=== PATIENT | female | born 1960 | race Caucasian/White ===

== ENCOUNTER 2018-06-10 01:12 | Outpatient (CLI) | payer MEDICAID, SELFPAY ==
--- NOTE | 2018-06-10 12:30 | DI.MAMMO_ITS ---
SYMPTOM/DIAGNOSIS: SCREENING, Z12.31 MAMMOGRAMS: Mammograms were interpreted according to the usual protocol including computer analysis with CAD system, tomosynthesis and C view imaging. The breast tissue is of moderate radiodensity. There is no evidence of a dominant mass. There are no suspicious calcifications. An asymmetric density in the lateral portion of the right breast appears stable when compared with previous images. SUMMARY: No evidence of malignancy. Category 2, yearly screening mammography is recommended. Breast density, category B. Annual screening mammography is recommended. MQSA ASSESSMENT OF FINDINGS: Negative with benign findings. Category 2. Patient will receive a letter notifying them of these results. BI-RADS category B. There are scattered areas of fibroglandular density.
== END 2018-06-10 01:32 ==
PROVIDERS: PCP Student in an Organized Health Care Education/Training Program; Visit Provider Student in an Organized Health Care Education/Training Program
DX: Z12.31 Encounter for screening mammogram for malignant neoplasm of breast (principal)
CPT/HCPCS: 77063; 77067

== ENCOUNTER 2019-09-24 04:21 | Outpatient (CLI) | payer MEDICAID, SELFPAY ==
[2019-09-24 09:05] LABS: BUN 21 mg/dL (7-18); Calcium 8.9 mg/dL (8.5-10.1); Calculated LDL 138 mg/dL (<100); Chloride 103 mmol/L (98-107); Cholesterol 218 mg/dL (<200); Glucose 93 mg/dL (74-106); HDL Cholesterol 71 mg/dL (40-60); Potassium 3.8 mmol/L (3.5-5.1); Sodium 142 mmol/L (136-145); Triglyceride 48 mg/dL (<150)
== END 2019-09-24 04:41 ==
PROVIDERS: PCP Student in an Organized Health Care Education/Training Program; Visit Provider Student in an Organized Health Care Education/Training Program
DX: I10 Essential (primary) hypertension (principal); Z13.220 Encounter for screening for lipoid disorders; Z13.1 Encounter for screening for diabetes mellitus
CPT/HCPCS: 36415; 80048; 80061

== ENCOUNTER 2020-12-02 03:36 | Outpatient (CLI) | payer MEDICAID, SELFPAY ==
--- NOTE | 2020-12-02 08:15 | DI.MAMMO_ITS ---
Exam(s) MAMMO SCREENING EXAM: MAMMO SCREENING CLINICAL HISTORY: screening, Z12.39 TECHNIQUE: Bilateral full field digital CC and MLO mammographic images were obtained with 3D tomosyn thesis and utilizing computer aided detection (CAD). COMPARISON: Available for comparison. FINDINGS: Masses/Architectural Distortion: None seen. Microcalcifications: No suspicious pleomorphic-type are seen. Skin Thickening/Nipple Retraction: None. IMPRESSION: 1. No significant interval change with no specific features of malignancy noted. 2. Unless there is more urgent need, screening mammography is recommended, as per [employer] guidelines. BI-RADS Category 1 - Negative Breast Density - Category B - Scattered areas of fibroglandular density Breast density category C or D implies that the patient has dense breast tissue. Dense breast tissue is very common and is not abnormal but dense breast tissue can make it harder to find cancer on a ma mmogram. Also, dense breast tissue may increase their breast cancer risk. This information about the result of the mammogram report was provided to the patient to raise their awareness. Use this report when you speak with the patient about their risks for breast cancer, which includes their family hist ory. At that time, you may recommend for more screening tests (Ultrasound or MRI) as they might be us eful based on their risk. A negative radiographic report should not delay biopsy if a dominant or clinically suspicious mass is present. Up to ten percent of cancers are not identified on mammography. A negative report may reinforce clinical impression. Adenosis and dense breasts may obscure an underlying neoplasm. False positive reports average 6 to 10%. Patient will receive a letter notifying them of these results.
== END 2020-12-02 03:56 ==
PROVIDERS: PCP Student in an Organized Health Care Education/Training Program; Visit Provider Student in an Organized Health Care Education/Training Program
DX: Z12.31 Encounter for screening mammogram for malignant neoplasm of breast (principal)
CPT/HCPCS: 77063; 77067

== ENCOUNTER 2020-12-20 02:15 | Outpatient (CLI) | payer MEDICAID, SELFPAY ==
--- NOTE | 2020-12-20 14:10 | DI.RAD_ITS ---
Exam(s) XR LUMBAR SPINE COMPLETE EXAM: XR LUMBAR SPINE COMPLETE CLINICAL HISTORY: LOW BACK PAIN, H/O SPONDYLOLISTHESIS. TECHNIQUE: 2D digital imaging was performed. COMPARISON: CR LUMBAR SPINE AP, LAT from 10/22/2011 CR LUMBAR SPINE AP, LAT from 11/19/2011 FINDINGS: The vertebral bodies are well maintained in height. There is bilateral L5 spondylolysis and mild L5- S1 spondylolisthesis. The disc space is narrowed. The findings appear stable compared 2012. There is mild narrowing of the L4-5 disc space and small endplate osteophytes. There are facet degenerativ e changes worsening when compared the previous exam. There is a stable mild dextroscoliosis. The hi p joint spaces are well maintained. IMPRESSION: Stable L5 spondylolysis and mild L5-S1 spondylolisthesis. Degenerative and disc changes. DATA REPOSITORY: RADIATION DOSE DELIVERED:
== END 2020-12-20 02:35 ==
PROVIDERS: PCP Student in an Organized Health Care Education/Training Program; Visit Provider Student in an Organized Health Care Education/Training Program
DX: M54.5 Low back pain (principal); M43.17 Spondylolisthesis, lumbosacral region; M43.06 Spondylolysis, lumbar region
CPT/HCPCS: 72110

== ENCOUNTER 2021-08-22 09:02 | Day surgery (SDC) | payer MEDICAID, SELFPAY ==
[2021-08-22 09:16] VITALS: BP 134/81; PULSE 67; RESP 17; TEMP 37; O2SAT 97
[2021-08-22] MEDS: Lactated Ringers 1,000 ML 80 ML IV (09:47)
--- NOTE | 2021-08-22 10:16 | W.ANESPRE ---
General Info Date of Service Date Performed: 08/22/21 Height: 5 ft 4 in Weight: 82.9 kg Body Mass Index (BMI): 31.4 Surgical Procedure: Operation Date: 08/22/21 10:20 Proposed Procedure Side Surgeon p Jaime Mcintosh, Meds Allergies and Home Medications Allergies Allergy/AdvReac Type Severity Reaction Status Date / Time nitrofurantoin Allergy Severe hives? Verified 08/22/21 09:27 [From Macrodantin] haloperidol [From Haldol] Allergy Intermediate eyes Verified 08/22/21 09:27 rolled back in head sulfamethoxazole Allergy Intermediate hives Verified 08/22/21 09:27 [From Bactrim] trimethoprim [From Bactrim] Allergy Intermediate hives Verified 08/22/21 09:27 haloperidol lactate Allergy Unknown Verified 08/21/21 11:35 [From Haldol] lisinopril AdvReac Unknown Cough Verified 08/22/21 09:27 Home Medication Medication Instructions Recorded vitamin B complex 1 ea PO DAILY 09/16/17 losartan 100 1 tab PO DAILY #90 tabs 10/05/20 mg-hydrochlorothiazide 25 mg tablet albuterol sulfate 90 mcg/actuation 2 inh inhalation Q6H PRN shortness 02/27/21 aerosol inhaler (Proventil HFA) of breath or wheezing #6.7 grams fluticasone propionate 110 1 puff inhalation BID ##1 02/27/21 mcg/actuation HFA aerosol inhaler (Flovent HFA) bisacodyl 5 mg tablet,delayed 5 mg PO ONCE colonscopy bowel prep 08/10/21 release (Dulcolax (bisacodyl)) #4 tabs polyethylene glycol 3350 17 238 g PO ONCE colonoscopy prep 08/10/21 gram/dose oral powder #238 grams Current Visit Medications: Current Medications Generic Name Dose Route Start Last Admin Trade Name Freq PRN Reason Stop Dose Admin Hyoscyamine Sulfate 0.125 mg 08/21/21 12:55 Hyoscyamine 0.125 Mg Sl/Oral/Chew SL DIRECTED PRN Ringer's Solution 1,000 mls @ 80 mls/hr 08/22/21 06:00 08/22/21 09:47 IV 09/20/21 23:59 80 mls/hr INFUSION DISHA Administration IV Miscellaneous Supplies 1 each 08/22/21 06:00 Iv Access IV 09/20/21 23:59 DIRECTED DISHA Ondansetron HCl 4 mg 08/21/21 12:55 Ondansetron 4 Mg/2 Ml Vial IVP Q4H PRN PRN Nausea / Vomiting Sodium Chloride 0 ml 08/22/21 06:00 Normal Saline Flush 10 Ml Syr IV 09/20/21 23:59 PRN PRN Sodium Chloride 0 ml 08/22/21 06:00 Normal Saline 10 Ml Vial IJ 09/20/21 23:59 DIRECTED PRN Sterile Water 0 ml 08/22/21 06:00 Water,Injection,Sterile 10 Ml Vial IJ 09/20/21 23:59 DIRECTED PRN PFSH Active Problems Active Problems: Problem Status Onset Code Diverticulosis of large intestine without hemorrhage 10/04/17 K57.30 Essential hypertension 10/04/17 I10 Health care maintenance Z00.00 Hx of colonic polyp Z86.010 Asthma 10/04/17 J45.909 Hypercholesterolemia 10/04/17 E78.00 Dyspepsia 10/04/17 R10.13 Calcaneal spur 10/04/17 M77.30 Anxiety 10/04/17 F41.9 Exacerbation of asthma 10/04/17 J45.901 Acute right-sided low back pain without sciatica 10/04/17 M54.5 Back pain 12/05/20 M54.9 Spondylolysis M43.00 Family hx of colon cancer Z80.0 Shingles B02.9 Medical History Medical History NIKI-inhibitor cough Asthma Dyspepsia Hypercholesterolemia Hypertension Perimenopausal vasomotor symptoms Shingles 07/27/21 never had open weaping sores just pain.(ok'd per anes to proceed with colonoscopy 08/21/21-LP) Sigmoid diverticulosis Surgical History Surgical History Colonoscopy - MAC (11/25/17) Excision, Cervicle Lymph Nodes Partial Hysterectomy (~1995) Tobacco Smoking/Tobacco Use Status: Never Alcohol Alcohol Intake: current Alcohol intake frequency: 0-2 drinks per day Alcohol type: wine Details: 1 glass of wine every night Substance Use Substance use: Never Substance use type: does not use Vital Signs and Lab Results Vital Signs Most Recent Vital Signs in EMR: Most Recent Vital Signs Temp Pulse Resp BP Pulse Ox 37.0 C 67 17 134/81 97 08/22/21 09:16 08/22/21 09:16 08/22/21 09:16 08/22/21 09:16 08/22/21 09:16 Lab Results Blood Type / Crossmatch: No Data to Display Complete Blood Count: No Data to Display Complete Metabolic Panel: No Data to Display Liver Function Panel: No Data to Display Coagulation Panel: No Data to Display Cardiac Panel: No Data to Display Arterial Blood Gas: No Data to Display Venous Blood Gas: No Data to Display Pancreas Panel: No Data to Display Thyroid Panel: No Data to Display Infectious Disease: No Data to Display Blood Cultures: No Data to Display Toxicology Panel: No Data to Display Anesthesia Assessment and Plan Anesthesia History Personal History: No History of Anesthesia Complications Family History: No Family History of Anesthesia Complications Exercise Tolerance Exercise Tolerance: Metabolic Equivalents>4 Pertinent Negatives Pertinent Negatives: No Symptoms of GERD and No Major Pulmonary Symptoms or Complaints Cardiac & Pulmonary Exam Cardiac Exam: Normal S1/S2 Heart Sounds Pulmonary Exam: Clear Bilateral Breath Sounds Implantable Cardiac Device Does patient have a Pacemaker or an ICD?: No Airway Exam Known Difficult Airway: No Mallampati Class: 2 Mouth Opening: Normal (> 3cm) Thyromental Distance: Greater than 3 cm Neck Range of Motion: Full ROM Neck Circumference: Normal Teeth Condition: Normal Dentition ASA Classification ASA Score: ASA 2 Emergency Case?: No NPO Status NPO Status: NPO Clears >2 hours, Solids >8 hours Anesthesia Plan Resuscitation Status: Full Code Anesthesia Technique: General Anesthesia Airway Planned: Natural Airway Monitors Used: Standard Monitors
[2021-08-22 10:19] VITALS: BMI 31.4
--- NOTE | 2021-08-22 10:44 | BOWEL_PTH ---
PATIENT: Di Benson LOC: [facility] U#:[id number] AGE/SX: 61/F ROOM: RE08/22/[address]: Izzy Mcintosh : 1960 BED: DIS: 08/22/2021 SPEC #: [id number] RECD: 08/22/21 12:34 STATUS: NICHOLAS RE #: [id number] BEHZAD: 08/22/21 10:[address]: Izzy Mcintosh DEPT: Surgical Specimen RECD BY: Dotty More ENTERED: 08/22/21 12:35 SP TYPE: Bowel OTHR DR: Marlys Roth DO Tissues: 1 - BIOPSY BOWEL 2 - BIOPSY BOWEL Procedures: GROSS AND MICRO LEVEL 4 Comments: [id number]
--- NOTE | 2021-08-22 11:14 | W.COLOREPORT ---
Colonoscopy Report Date of procedure: 08/22/21 Pre-op diagnosis general: Colorectal cancer in sister Surgeon: Izzy Mcintosh Anesthesia Type: General:No Airway Pathology: other Complications: None Disposition: same day Prep: Miralax/Dulcolax Retraction Time: 13 Procedure Description: After informed consent was obtained the patient was taken to the procedure room and placed in a left decubitous position. Monitors were applied and a time out was done. The patients name, date of , procedure, allergies to medications and metal in their body was reviewed. The patient was then sedated. Once sedated and comfortable a rectal exam was done. External exam shows: External hemorrhoids- mild. internal exam revealed a normal sphincter tone and no palpable masses. The scope was then introduced and retrofelexed. No internal hemorrhoids were identified. The scope was then advanced to the cecum without difficulty. The TI and appendiceal orifice were identified. The prep was the BPS 2 in all segments for total of 6. scope was then slowly retracted over 13 minutes back into the rectum. she has moderate sigmoidal diverticula, confined to the sigmoid colon, there are no signs of active bleeding or infection. She had x3 polyps removed in the rectum. 2 of them are 0.75 cm & pedunculated. These are removed with cold snare. One of them is a flat 5 mm polyp. This is removed with cold biting work forcep. All specimens are retrieved and no bleeding is noted. There is another small flat polyp at 70 cm. This is removed with 2 bites of cold forcep. The scope was removed, and the patient was woken up and taken back to Same day surgery in stable condition. The patient tolerated the procedure well and there were no immediate complications. Follow up: The patient should follow up in 5-years unless they develop changes in bowel habits or other new gastrointestinal complaints.
[2021-08-22 11:17] VITALS: BP 150/88; PULSE 69; RESP 17; TEMP 36.6; O2SAT 99
--- NOTE | 2021-08-22 11:18 | PDOC.DSDIS_ITS ---
Discharge Plan Disposition Patient Disposition: HOME Condition: Good Discharge Details Reason For Visit: colon scope Attending Provider: Izzy Mcintosh Primary Care Provider: Marlys Roth Home Meds and New Rx's Prescriptions: Continued losartan-hydrochlorothiazide 100-25 mg tablet 1 tab PO DAILY Qty: 90 3RF vitamin B complex 1 EACH capsule 1 ea PO DAILY albuterol sulfate [Proventil HFA] 90 mcg/actuation HFA aerosol inhaler 2 inh IH Q6H PRN (Reason: shortness of breath or wheezing) Qty: 6.7 2RF Flovent HFA 110 mcg/actuation HFA aerosol inhaler 1 puff Inhalation BID Qty: 1 3RF Rx Instructions: 1 puff inhale by mouth twice a day. Use with spacer Discontinued polyethylene glycol 3350 17 gram/dose powder 238 g PO ONCE Qty: 238 0RF Rx Instructions: take per colonoscopy instructions bisacodyl [Dulcolax (bisacodyl)] 5 mg tablet,delayed release (DR/EC) 5 mg PO ONCE Qty: 4 0RF Rx Instructions: take per colonoscopy instructions Discharge Instructions Additional Instructions: DSU Colonoscopy Post- Op Instructions Instructions for Everyone who is given Anesthesia: For your safety, please do the following for the next twenty-four (24) hours: *Do Not operate a motor vehicle (car, truck, motorcycle, etc.) *Do Not drink alcoholic beverages or use any recreational drugs for the first 24 hours or while taking pain medications. The medications in your body may have a reaction that can be dangerous. *Do Not make any important decisions or sign any important papers. Findings: polyps x4 diverticula- moderate. Make sure you are moving your bowels on a regular basis and not straining to go to the bathroom. Follow up: repeat in 5 yrs tiime. 1. No lifting over 20 pounds or strenuous activity for the first 24 hours after your procedure. After 24 hours there are no restrictions on your activity but you may feel fatigued for a few days. 2. After you arrive home you may have a light meal and return to your normal diet as you can tolerate it without feeling sick to your stomach. 3. You may have a bloated, gaseous feeling in your belly (abdomen) after a colonoscopy. Passing gas and belching will help. Walking or lying down on your left side with your knees flexed may relieve the discomfort. Call the office at [phone] (Office) or [phone] (Hospital) right away if you notice any of the following: a.Vomiting of blood or ?coffee ground stools?. b.Rectal bleeding 1Tbsp, blood clots or continuous bleeding. c.Severe belly (abdominal) pain. d.A hard distended belly (abdomen) and an inability to pass gas. 4. Please don?t expect to have a normal BM (bowel movement) for 2-3 days after your procedure. 5. If there are questions regarding the findings of your procedure, please contact your doctor 6. If you are unable to contact your doctor with a problem, contact the hospital at [phone]. 7. Continue all your regular medications unless directed otherwise. I understand the above instructions and have no questions. Signature of Patient or Adult Escort Name of Responsible Adult Escort Signature of Nurse Date/Time Stand Alone Forms: Rosangela Sharp (DSU) Activity:: see above Diet:: see above Discharge Orders Discharge Orders: Discharge Order (Routine); Ordered 08/21/21 Ordered By: Izzy Mcintosh
--- NOTE | 2021-08-22 11:45 | W.ANESPOSTOP ---
Postoperative Evaluation Date, Time and Location Date Performed: 08/22/21 Time Performed: 10:45 Patient Location: Day Surgery Unit Vital Signs Most Recent Imported Vital Signs: Most Recent Vital Signs Temp Pulse Resp BP Pulse Ox 36.6 C 69 17 150/88 H 99 08/22/21 11:17 08/22/21 11:17 08/22/21 11:17 08/22/21 11:08/22/21 11:17 Pain Score Most Recent Pain Score: Most Recent Pain Score Pain Level 0 08/22/21 09:16 Assessment Mental Status: Awake (Alert & Oriented to Patient Baseline) Airway and Respiratory Function: Patent airway with normal (patient baseline) respiratory exam Cardiovascular Function: Hemodynamically Stable Hydration Status: Adequately Hydrated Nausea & Vomiting: No Nausea or Vomiting Pain: Pt. Denies Any Pain Peripheral Nerve Block: Patient did not receive a nerve block
[2021-08-22 11:46] VITALS: BP 155/86; PULSE 63; RESP 18; TEMP 36.6; O2SAT 98
== END 2021-08-22 11:58 | disposition home or self-care (01) ==
PROVIDERS: PCP Student in an Organized Health Care Education/Training Program; Visit Provider Surgery
PROC: 0DJD8ZZ Inspection of Lower Intestinal Tract, Via Natural or Artificial Opening Endoscopic (ICD-10-PCS; CPT 45378; principal; 2021-08-22 10:15)
DX: Z12.11 Encounter for screening for malignant neoplasm of colon (principal); K62.1 Rectal polyp; Z80.0 Family history of malignant neoplasm of digestive organs; I10 Essential (primary) hypertension; E78.00 Pure hypercholesterolemia, unspecified; K63.89 Other specified diseases of intestine
CPT/HCPCS: 45385; 45380; 88305

== ENCOUNTER → 2021-09-18 16:25 | Outpatient (CLI) | payer MEDICAID, SELFPAY ==
--- NOTE | 2021-09-18 15:15 | DI.RAD_ITS ---
Exam(s) XR CHEST 2V PA LATERAL EXAM: XR CHEST 2V PA LATERAL CLINICAL HISTORY: L sided pain, reproducible with touch r07.9 chest pain TECHNIQUE: 2D digital imaging was performed. COMPARISON: No exams were available for comparison FINDINGS: MEDIASTINUM: Normal. HEART: Normal. PULMONARY VASCULATURE: Normal. LUNGS: Clear. PLEURAL SPACE: No pleural effusion or pneumothorax. BONE:Unremarkable for age. IMPRESSION: No acute abnormality. DATA REPOSITORY: RADIATION DOSE DELIVERED:
== END ==
PROVIDERS: PCP Student in an Organized Health Care Education/Training Program; Visit Provider Family Medicine
DX: R07.89 Other chest pain (principal)
CPT/HCPCS: 71046

== ENCOUNTER 2021-10-17 01:51 | Outpatient (CLI) | payer MEDICAID, SELFPAY ==
--- NOTE | 2021-10-17 14:37 | DI.RAD_ITS ---
Exam(s) XR RIBS LT W PA LAT CHEST EXAM: XR RIBS LT W PA LAT CHEST CLINICAL HISTORY: evaluate ribs for possible stress Fx, OUT OF PROPORTION PAIN,RIB TENDERNESS TECHNIQUE: 2D digital imaging was performed. Six images were obtained. COMPARISON: CR XR CHEST 2V PA LATERAL from 09/18/2021 FINDINGS: MEDIASTINUM: Normal. HEART: Normal. PULMONARY VASCULATURE: Normal. LUNGS: Clear. PLEURAL SPACE: No pleural effusion or pneumothorax. BONE:Within normal limits for the patient's age. LEFT RIBS: Normal. OTHER FINDINGS:Normal. IMPRESSION: 1. No acute pulmonary findings. 2. Unremarkable left ribs. DATA REPOSITORY: RADIATION DOSE DELIVERED:
== END 2021-10-17 02:11 ==
LOC: DI 01:52
PROVIDERS: PCP Student in an Organized Health Care Education/Training Program; Visit Provider Student in an Organized Health Care Education/Training Program
DX: S29.012S Strain of muscle and tendon of back wall of thorax, sequela; X58.XXXD Exposure to other specified factors, subsequent encounter; R07.81 Pleurodynia
CPT/HCPCS: 71046; 71100

== ENCOUNTER → 2023-02-21 03:43 | Outpatient (CLI) | payer MEDICAID, SELFPAY ==
--- NOTE | 2023-02-21 07:30 | DI.DEXA_ITS ---
Exam(s) XR DEXA BONE DENSITY W/WO LULÚ EXAM: XR DEXA BONE DENSITY W/WO LULÚ CLINICAL HISTORY: eval bone density,OSTEOPOROSIS, M81.0 TECHNIQUE: HoloSoukboard C densitometer analysis of left hip, lumbar spine and left forearm. Lat eral survey image of the thoracic and lumbar spine. COMPARISON: CR XR LUMBAR SPINE COMPLETE from 02/21/2023 FINDINGS: Lateral view of the thoracic and lumbar spine shows no evidence of compression fractures. Bone mineral density measurements of the lumbar spine correspond to a total T-score of -0.3, in the normal range. Bone mineral density measurements of the left hip correspond to a total T-score of 0.1. The femoral neck T-score is -0.8, in the normal range.. Theleft forearm bone mineral density measurements correspond to a T-score of the distal 3rd of 0.5, in the normal range.. IMPRESSION: Normal bone mineral density.
--- NOTE | 2023-02-21 09:04 | DI.RAD_ITS ---
Exam(s) XR LUMBAR SPINE COMPLETE EXAM: XR LUMBAR SPINE COMPLETE CLINICAL HISTORY: eval lordosis,NEUROPATHY,NUMBNESS AND TINGLING FOOT,G62.9. TECHNIQUE: 2D digital imaging was performed. Five views. COMPARISON: CR XR LUMBAR SPINE COMPLETE from 12/20/2020 CR XR DEXA BONE DENSITY W/WO LULÚ from 02/21/2023 FINDINGS: BONES: No compression fracture. Endplate osteophytes. Bilateral L5 spondylolysis and mild L5-S1 spo ndylolisthesis, unchanged. Mild facet hypertrophy identified. DISKS: Mild narrowing of the L1-2 disc space. Severe narrowing of the L5-S1 disc space, unchanged. ALIGNMENT: Slight dextroscoliosis SOFT TISSUE: Normal. IMPRESSION: Focal appearance of L5 spondylolysis and mild L5-S1 spondylolisthesis as well as severe disc space na rrowing. DATA REPOSITORY: RADIATION DOSE DELIVERED:
--- NOTE | 2023-02-21 09:34 | DI.MAMMO_ITS ---
Exam(s) MAMMO SCREENING EXAM: MAMMO SCREENING CLINICAL HISTORY: screening,Z12.39 TECHNIQUE: Mammograms were interpreted according to the usual protocol including computer analysis w [employer] CAD system, tomosynthesis and C-view imaging. COMPARISON: 2013 through 2020 FINDINGS: The breasts are composed of scattered fibroglandular densities, Breast Density category B. No suspicious masses or suspicious microcalcifications are seen. No skin thickening or abnormal axillary lymph nodes are seen. There has been no significant change from prior exams. IMPRESSION: BI-RADS Category 1, Negative mammogram Yearly screening mammography is recommended. Breast Density - Category B, scattered fibroglandular densities. A negative radiographic report should not delay biopsy if a dominant or clinically suspicious mass is present. Up to ten percent of cancers are not identified on mammography. A negative report may reinforce clinical impression. Adenosis and dense breasts may obscure an underlying neoplasm. False positive reports average 6 to 10%. Patient will receive a letter notifying them of these results.
== END ==
PROVIDERS: PCP Student in an Organized Health Care Education/Training Program; Visit Provider Student in an Organized Health Care Education/Training Program
DX: Z91.89 Other specified personal risk factors, not elsewhere classified; Z12.31 Encounter for screening mammogram for malignant neoplasm of breast; G62.9 Polyneuropathy, unspecified; R20.0 Anesthesia of skin; R20.2 Paresthesia of skin; R92.323 Mammographic fibroglandular density, bilateral breasts; M43.17 Spondylolisthesis, lumbosacral region; M47.816 Spondylosis without myelopathy or radiculopathy, lumbar region; Z13.820 Encounter for screening for osteoporosis
CPT/HCPCS: 77063; 77067; 77080; 72110

== ENCOUNTER 2023-09-16 05:57 | Outpatient (CLI) | payer MEDICAID, SELFPAY ==
[2023-09-16 08:31] LABS: Folate > 20.0 ng/mL (8.6-20.0)
[2023-09-16 08:41] LABS: ALT 88 U/L (14-59); AST 49 U/L (15-37); Albumin 4.1 g/dL (3.4-5.0); Alkaline Phosphatase 46 U/L (46-116); Anion Gap 7.5 mmol/L (3-11); BUN 16 mg/dL (7-18); Bilirubin, Total 0.7 mg/dL (0.2-1.0); CO2 34.5 mmol/L (21.0-32.0); CREATININE 0.8 mg/dL (0.55-1.02); Calcium 9.4 mg/dL (8.5-10.1); Calculated LDL 136 mg/dL (<100); Chloride 101 mmol/L (98-107); Cholesterol 230 mg/dL (<200); Estimated GFR 82.74 (mL/min/1.73m2); Glucose 106 mg/dL (74-106); HDL Cholesterol 77 mg/dL (40-60); Sodium 143 mmol/L (136-145); Total Protein 7.8 g/dL (6.4-8.2); Triglyceride 85 mg/dL (<150); Vitamin B12 454 pg/mL (193-986); Vitamin D 25 Total 18.9 ng/mL (30-100)
== END 2023-09-16 05:58 | disposition home or self-care (01) ==
LOC: LBO 05:57
PROVIDERS: PCP Student in an Organized Health Care Education/Training Program; Visit Provider Student in an Organized Health Care Education/Training Program
DX: G62.9 Polyneuropathy, unspecified (principal); R20.0 Anesthesia of skin; R20.2 Paresthesia of skin
CPT/HCPCS: 36415; 80053; 80061; 82306; 82607; 82746

== ENCOUNTER 2024-03-06 00:26 | Outpatient (CLI) | payer MEDICAID, SELFPAY ==
--- OUTSIDE RECORDS SUMMARY | 2024-03-06 00:29 | XMS_ITS | Encounter Summary ---
[place] [address] Care Team Providers Care Prawn Trawler Hand Name Role Phone Marlys Roth DO Primary Care Provider [phone]- [phone] Reason for Referral * Allergy Testing (Routine) - Closed Specialty Diagnoses / Procedures Referred By Sasha zhu Referred To Contact Allergy Diagnoses Allergy, initial encounter Keith Cook DO [address] [place] [address] [facility] [address] [place] [address] Referral ID Status Reason Start Date Expiration Date V isits Requested Visits Authorized [id number] Closed Consult, Test & Treat PCP Updated and/or Approved 07/12/2022 07/12/2023 6 6 Encounter Details Date Type Department Care Team (Latest Contact Info) Description 07/12/2022 Transcribe Orders eDH Incoming Referrals [phone] Keith Cook DO [address] [place], [place] [id number] Allergy, initial encounter Social History Tobacco Use Types Packs/Day Years Used Date Smoking Tobacco: Never Assessed Sex and Gender Information Value Date Recorded Sex Assigned at Not on file Gender Identity Not on file Sexual Orientation Not on file documented as of this encounter Plan of Treatment Scheduled Referrals Name Type Priority Associated Diagnoses Orde r Schedule Referral to Allergy Outpatient Referral Routine Allergy, initial encounter Ordered: 07/12/2022 documented as of this encounter Visit Diagnoses Diagnosis Allergy, initial encounter documented in this encounter Care Teams Prawn Trawler Hand Relationship Specialty Start Date End Date Marlys Roth DO [address] [place] [address] PCP - General Family Medicine 12/25/17 documented as of this encounter
--- OUTSIDE RECORDS SUMMARY | 2024-03-06 00:29 | XMS_ITS | Clinical Summary ---
Author Organization [facility] Address [facility] [place] [address] Care Team Providers Care Machine Set Up Name Role Phone Marlys Roth DO Primary Care Provider [phone]- [phone] Allergies Active Allergy Reactions Criticality Noted Date Comments Haloperidol CIS - eyes roll to back of head Nitrofurantoin Macrocrystalline CIS - Nausea/Vomiting Sulfamethoxazole-Trimethoprim CIS - Hives Medications Medication Sig Dispensed Refills Start Date End Date Status OXYCODONE HCL (OXYCODONE ORAL) 01/30/2007 Active losartan-hydroCHLOROth iazide (Hyzaar) 100-25 mg tablet Take 1 tablet by mouth daily. 09/21/2022 Active Ventolin HFA 90 mcg/actuation HFA Aerosol Inhaler Inhale 2 puffs into the lungs every 4 hours as needed for Wheezing. 05/01/2022 Active Flovent HFA 110 mcg/actuation HFA Aerosol Inhaler INHALE ONE PUFF BY MOUTH TWICE A DAY, USE WITH SPACER 05/01/2022 Active Active Problems No known active problems Social History Tobacco Use Types Packs/Day Years Used Date Smoking Tobacco: Never Assessed Sex and Gender Information Value Date Recorded Sex Assigned at Not on file Gender Identity Not on file Sexual Orientation Not on file Last Filed Vital Signs Vital Sign Reading Time Taken Comments Blood Pressure 128/75 10/03/2022 9:12 AM EDT Pulse 68 10/03/2022 9:12 AM EDT Temperature 38 ??C (100.4 ??F) 10/14/2012 5:55 PM EDT Respiratory Rate 16 10/14/2012 5:55 PM EDT Oxygen Saturation 100% 10/03/2022 9:12 AM EDT Inhaled Oxygen Concentration - - Weight 81.8 kg (180 lb 4.8 oz) 10/03/2022 9:12 A M EDT Height - - Body Mass Index - - Plan of Treatment Health Maintenance Due Date Last Done Comments CT Colonography 1960 Colonoscopy 1960 Colorectal Cancer Screening 1960 FIT DNA 1960 FIT 1960 Sigmoidoscopy (10 year) with FIT yearly 1960 Sigmoidoscopy 1960 HIV screen 1978 Hepatitis C Screening 1978 Tetanus/Diphtheria/Pertussis Vaccines (1 - Tdap) 03/03 HPV test 1990 PAP Smear 1990 Breast Cancer Share Decision Needed 2000 Breast Cancer screening 2000 Zoster vaccine (1 of 2) 2010 Advance Directive 2015 Covid-19 Vaccine (1 - season) 2023 Influenza (Flu) vaccine (1 o f 1 - Influenza standard series) 12/08/2023 Care Teams Machine Set Up Relationship Specialty Start Date End Date Marlys Roth DO [address] [place] [address] PCP - General Family Medicine 12/25/17
--- OUTSIDE RECORDS SUMMARY | 2024-03-06 00:29 | XMS_ITS | Encounter Summary ---
Author Organization [facility] [place] [address] Care Team Providers Care Law Researcher Name Role Phone Danielle Villareal APRN Primary Care Provider [phone]- [phone] Encounter Details Date Type Department Care Team (Late st Contact Info) Description 01/16/2012 10:30 AM EDT Ancillary Appointment [place] [address] [place] [address] Jose Jimenez Jr., MD [address] [place] [id number] Social History Tobacco Use Types Packs/Day Years Used Date Smoking Tobacco: Never Assessed Sex and Gender Information Value Date Recorded Sex Assigned at Not on file Gender Identity Not on file Sexual Orientation Not on file documented as of this encounter Plan of Treatment Not on file documented as of this encounter Procedures Procedure Name Priority Date/Time Associated Diagnosis Comments NM EXERCISE STRESS AND REST MYOCARDIAL PERFUSION Routine 01/16/2012 documented in this encounter Results * NM myocardial perfusion - stress & rest (01/16/2012) Anatomical Region Laterality Modality Other Narrative 01/16/2012 MIBI Exercise Stress Test- Final Report ?? Di Benson : [address] [place] [address] Primary Physician: ??DANIELLE VILLAREAL APRN ??Indication: dyspnea, chest tightness Date: 01/16/2012 Summary: Max Exercise: ??7:30, 1:30 ??Stage III ??Satya ?? 10 ?? METS Max HR: ? 146> 85 % PMR(143) Max BP: ??218/[address] change: ??none Reason for Termination: dyspnea, no chest pain Imaging: ??Normal perfusion and wall motion ??EF 69 % Impression: good exercise tolerance, no ischemia, normal EF Details: Medication: on lisinopril Risk Factors: ?? Family History, HTN Resting EKG: NSR 68, normal ?Resting BP: 142/90 Exercise per Satya protocol Arrhythmias: none Recovery: ??BP ?? -> ?? 178/92 ?HR ?? -> 93 Arrhythmias: none Rest Images: 10.0 mC MIBI, Spect-normal Stress Images: ??32.0 mC MIBI, Spect-normal Electronically signed: Jose Jimenez Jr, MD [facility] Historical Provider MD DURNO NM ORDERABLES documented in this encounter Visit Diagnoses Not on filedocumented in this encounter Care Teams Law Researcher Relationship Specialty Start Date End Date [place] [address] PCP - General 01/11/12 12/24/17 documented as of this encounter
--- OUTSIDE RECORDS SUMMARY | 2024-03-06 00:29 | XMS_ITS | Encounter Summary ---
Author Organization [facility] [place] [address] Care Team Providers Care Marketing Officer Name Role Phone Marlys Roth DO Primary Care Provider [phone]- [phone] Encounter Details Date Type Department Care Team (Latest Contact Info) Description 10/03/2022 Travel Social History Tobacco Use Types Packs/Day Years Used Date Smoking Tobacco: Never Assessed Sex and Gender Information Value Date Recorded Sex Assigned at Not on file Gender Identity Not on file Sexual Orientation Not on file documented as of this encounter Plan of Treatment Not on file documented as of this encounter Visit Diagnoses Not on filedocumented in this encounter Care Teams Marketing Officer Relationship Specialty Start Date End Date Marlys Roth DO [address] [place] [address] PCP - General Family Medicine 12/25/17 documented as of this encounter
--- OUTSIDE RECORDS SUMMARY | 2024-03-06 00:29 | XMS_ITS | Encounter Summary ---
Author Organization [facility] [place] [address] Care Team Providers Care Picking Supervisor Name Role Phone Marlys Roth DO Primary Care Provider [phone]- [phone] Reason for Visit * Reason Comments Angioedema * Allergy Testing (Routine) - Closed Specialty Diagnoses / Procedures Referred By Sasha zhu Referred To Contact Allergy Diagnoses Allergy, initial encounter Keith Cook DO [address] [place] [address] [facility] [address] [place] [phone] Referral ID Status Reason Start Date Expiration Date V isits Requested Visits Authorized [id number] Closed Consult, Test & Treat PCP Updated and/or Approved 07/12/2022 07/12/2023 6 6 Encounter Details Date Type Department Care Team (Late st Contact Info) Description 10/03/2022 9:30 AM EDT [place] [phone] Tanisha Toussaint MD [facility] [address] [facility] [address] Angioedema, initial encounter Social History Tobacco Use Types Packs/Day Years Used Date Smoking Tobacco: Never Assessed Sex and Gender Information Value Date Recorded Sex Assigned at Not on file Gender Identity Not on file Sexual Orientation Not on file documented as of this encounter Last Filed Vital Signs Vital Sign Reading Time Taken Comments Blood Pressure 128/75 10/03/2022 9:12 AM EDT Pulse 68 10/03/2022 9:12 AM EDT Temperature - - Respiratory Rate - - Oxygen Saturation 100% 10/03/2022 9:12 AM EDT Inhaled Oxygen Concentration - - Weight 81.8 kg (180 lb 4.8 oz) 10/03/2022 9:12 A M EDT Height - - Body Mass Index - - documented in this encounter Patient Instructions * Patient Instructions* Tanisha Toussaint MD - 10/03/2022 9:30 AM EDT There are many potential causes for swelling episodes. Because you have only had 1 episode it is hard to know the diagnosis for certain so we will have to continue to monitor. Get blood testing today to look for cancer-associated swelling. I think this is unlikely to be the explanation. OK to continue losartan-HCTZ for now, but if swelling episodes continue, I may recommend stopping losartan in the future because it can be a rare cause of swelling. The most likely explanation is idiopathic angioedema, a form of autoimmune disease that triggers swelling episodes. There is no specific test that would confirm this. It is something that we can onlydiagnose over time with continued monitoring. This form of angioedema responds to antihistamines, so if you get another episode you can take Benadryl 25 to 50 mg every 4h as needed. For frequent episodes patients may start an antihistamine to take every day to prevent episodes. Idiopathic angioedema is very unlikely to close off your airway. However, if you ever feel like your throat is tight or you are having trouble breathing from swelling episodes you should use the EpiPen and go to the emergency room. I recommend we check in again in 3 months. If you have not had any swelling episodes at that point we can space this out to 6 months. documented in this encounter Progress Notes * Tanisha Toussaint MD - 10/03/2022 9:30 AM EDT CC: swelling HPI: Di Benson is a 62 y.o. female with a PMH of HTN, HLD, asthma presenting for evaluation of facial swelling at the request of Keith Cook. 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 Does not have own pets, chesttightness with animals occurs only when pet sits, every few months on average. Also gets around some cats. Takes claritin prn for this which helps. Has Flovent and albuterol but only rarely uses - uses more in winter with cold air On day of swelling she was pet-sitting, but met the dog a week before - at that time it was in lap and face and no problem Right upper and lower lip swelled and it went up behind right eye Skin was not itchy, doesn't think it was red Started suddenly No trouble breathing - went right away to ED and got benadryl and prednisone which helped pretty quickly but took a couple days to go away completely Doesn't recall tongue swelling Eating crackers and cheese when sx began. Cheddar and Alice gone crackers - has continued to eat both of these since then without a problem Probably had been petting dog earlier that day Has been around the same dog since with no problem as well Did not have the chest tightness on the day she had swelling Eyes not itchy, watery No nasal congestion No other known seasonal or enviro allergies No h/o random hives - only with bactrim (decades ago) and contact with stinging nettle On losartan-HCTZ for a few years now Lisinopril - cough ROS is per HPI all others reviewed and are negative. ENVIRONMENTAL HISTORY Occupation: farm forestry and garden workers, [employer] There is no problem list on file for this patient. Past Medical History: Diagnosis Date Asthma HLD (hyperlipidemia) HTN (hypertension) Past Surgical History: Procedure Laterality Date PARTIAL HYSTERECTOMY losartan-hydroCHLOROthiazide (Hyzaar) 100-25 mg tablet Ventolin HFA 90 mcg/actuation HFA Aerosol Inhaler Flovent HFA 110 mcg/actuation HFA Aerosol Inhaler OXYCODONE HCL (OXYCODONE ORAL) Allergies Allergen Reactions Haloperidol CIS - eyes roll to back of head Nitrofurantoin Macrocrystalline CIS - Nausea/Vomiting Sulfamethoxazole-Trimethoprim CIS - Hives History reviewed. No pertinent family history. Social History Socioeconomic History Marital status: Spouse name: Not on file Number of children: Not on file Years of education: Not on file Highest education level: Not on file Occupational History Not on file Tobacco Use Smoking status: Not on file Smokeless tobacco: Not on file Substance and Sexual Activity Alcohol use: Not on file Drug use: Not on file Sexual activity: Not on file Other Topics Concern Not on file Social History Narrative Not on file Social Determinants of Health Financial Resource Strain: Not on file Food Insecurity: Not on file Transportation Needs: Not on file Physical Activity: Not on file Housing Stability: Not on file PHYSICAL EXAM: BP 128/75 Pulse 68 Wt 81.8 kg (180 lb 4.8 oz) SpO2 100% Gen: awake, alert, no acute distress Head: normocephalic, atraumatic EYES: Conjunctiva not injected or icteric. No discharge. No eyelid edema. ENT: Tympanic membranes clear, no lesions, erythema, or drainage. Normal external ear canals. Nasalpassages show normal mucosa, normal turbinates bilaterally, no lesions. OP mucosa well hydrated, clear without erythema or cobblestoning. No lesions or exudates. No visible OP edema. NECK: supple, symmetric, no masses, trachea midline LYMPH: no submandibular, cervical, or supraclavicular LAD CVS: RRR, no m/r/g LUNGS: CTAB, no wheezing or rales, breathing unlabored ABD: soft, non-tender, non-distended, bowel sounds present SKIN: no rashes, normal color, no mottling EXTREMITIES: warm and well-perfused, normal bulk, symmetric ROM, no edema NEURO: EOMI, no dysarthria PSYCH: normal grooming, appropriate mood and affect, normal volume/quantity/tone of speech, normal thought process and content ASSESSMENT AND PLAN: 62 y.o. female with one episode of angioedema, etiology uncertain but most likely idiopathic angioedema. - This is unlikely to be a food allergy because she has tolerated all the foods since then without a reaction - I think this is unlikely to be due to a dog allergy. She has noticed chest tightness around dogs before so it is clear that dogs can sometimes trigger asthma for her. However she did not have asthma symptoms or any other symptoms of allergy like stuffy nose and itchy eyes when this happened. Usually these symptoms will occur when someone gets swelling from an environmental allergen like dog dander. We discussed sending an IgE to dog, but I expected it to be positive due to the wheezing symptoms and I still did not feel this would explain the angioedema. She declines to send the test after our discussion. - Losartan is a potential cause for swelling episodes. However it usually does not improve with Benadryl. The clinical story, thus, makes this less likely and stopping this would potentially pose harm by making BP control more difficult. Recommended OK to continue for now but if future episodes occur and are more suggestive of an ARB as a trigger, I may recommend stopping it in the future - Will send C4 to r/o AAE. Low suspicion bc this does not respond to benadryl either The most likely explanation is idiopathic angioedema. Discussed that this is a form of autoimmune disease that triggers swelling episodes. There is no specific test that would confirm this and is something that we can only diagnose over time with continued monitoring. - if episodes recur, take Benadryl 25 to 50 mg q4h as needed - if episodes become frequent, will add cetirizine 10mg BID. At this point she has only had one episode so I would like to monitor the trajectory of this before adding daily medications - reviewed that this is very unlikely to cause airway swelling leading to a breathing emergency. She has an epipen already, but carrying it is optional. Counseled on situations where she would use this (throat tightness or any trouble breathing when she has swelling episode) and go to ED if uses RTO 3 mos; may space to 6 mos if no sx Tanisha Toussaint MD Orders Placed This Encounter Procedures C4 Complement documented in this encounter Plan of Treatment Not on file documented as of this encounter Procedures Procedure Name Priority Date/Time Associated Diagnosis Comments C4 COMPLEMENT Routine 10/03/2022 10:18 AM EDT Angioedema, initial encounter documented in this encounter Results * C4 Complement (10/03/2022 10:18 AM EDT) Complement C4 33 10 - 40 mg/dL [facility] Blood 10/03/2022 10:1 8 AM EDT 10/03/2022 10:32 AM EDT Narrative Resulting Agency Comment Spec In Lab Tanisha Toussaint MD CHEMISTRY ORDERABLES [facility] [place] [address] documented in this encounter Visit Diagnoses Diagnosis Angioedema, initial encounter documented in this encounter Care Teams Picking Supervisor Relationship Specialty Start Date End Date Marlys Roth DO [address] [place] [address] PCP - General Family Medicine 12/25/17 documented as of this encounter
--- OUTSIDE RECORDS SUMMARY | 2024-03-06 00:29 | XMS_ITS | Encounter Summary ---
Author Organization [facility] Address [facility] [place] [address] Care Team Providers Care Eyelet Row Marker Name Role Phone Mono Danielle Birmingham APRN Primary Care Provider +1- [phone] Reason for Visit * Reason Comments Fever Encounter Details Date Type Department Care Team (Late st Contact Info) Description 10/14/2012 12:43 PM EDT - 10/14/2012 5:56 PM EDT [place] [address] Jennifer Roach MD [facility] [place] [address] Tick-borne disease (Primary Dx) Discharge Disposition: Home Social History Tobacco Use Types Packs/Day Years Used Date Smoking Tobacco: Never Assessed Sex and Gender Information Value Date Recorded Sex Assigned at Not on file Gender Identity Not on file Sexual Orientation Not on file documented as of this encounter Last Filed Vital Signs Vital Sign Reading Time Taken Comments Blood Pressure 167/96 10/14/2012 5:55 PM EDT Pulse 78 10/14/2012 5:55 PM EDT Temperature 38 ??C (100.4 ??F) 10/14/2012 5:55 PM EDT Respiratory Rate 16 10/14/2012 5:55 PM EDT Oxygen Saturation 99% 10/14/2012 5:55 PM EDT Inhaled Oxygen Concentration - - Weight 81.6 kg (180 lb) 10/14/2012 12:53 PM EDT Height - - Body Mass Index - - documented in this encounter Discharge Instructions * Discharge Instructions* Jennifer Roach MD - 10/14/2012 5:35 PM EDT Take doxycycline twice a day for 2 weeks. Take ibuprofen and Tylenol, alternating, for fever and muscle aches. Drink large amounts of fluids. Return for new or worrisome symptoms. Followup with your PCP. documented in this encounter Medications at Time of Discharge Medication Sig Dispensed Refills Start Date End Date OXYCODONE HCL (OXYCODONE ORAL) 01/30/2007 doxycycline (VIBRAMYCIN) 100 mg capsule Take 1 capsule by mouth 2 times daily for 14 days. 28 capsule 0 10/14/2012 10/28/2012 documented as of this encounter ED Notes * Jennifer Roach MD - 10/14/2012 2:43 PM EDT Chief Complaint Patient presents with ??? Fever HPI 52-year-old female referred by her PCP for further workup of fever. Patient is normally healthy andactive but awakened 2 mornings ago feeling generally unwell and had rigors and sweats as well as a fever. She had a headache, myalgias and no other specific complaints. Appetite was decreased but shewas able to even drink with only mild nausea and no vomiting. She treated herself symptomatically with antipyretics and slept. Later that day she was seen at a local emergency department where she was given IV hydration and further antipyretics and she felt improved and was discharged home. She awakened overnight and had temperatures up to 103 with further rigors. She re\re visit to the emergency department and had blood work which showed leukopenia and thrombocytopenia and was felt to likely have tickborne illness and was given a prescription of doxycycline. She saw her PCP this morning and he was concerned about right upper quadrant tenderness and felt she should have further evaluation. She does note some spontaneous right shoulder discomfort yesterday which is now resolved. She deniedany abdominal pain or change in her bowels. 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 She's not had any rashes. Her chickens and takes have been well. She has no other sick contacts that she is aware of. Past medical history is significant for hypertension, hyperlipidemia and asthma. She does not smoke, drinks a glass of alcohol a day and denies any drug use. Allergies Allergen Reactions ??? Haloperidol CIS - eyes roll to back of head ??? Nitrofurantoin Macrocrystal CIS - Nausea/Vomiting ??? Sulfamethoxazole-Trimethoprim CIS - Hives Review of Systems Constitutional: Positive for fever, chills, diaphoresis and appetite change. HENT: Negative for sore throat and neck pain. Eyes: Negative for visual disturbance. Respiratory: Negative for cough and shortness of breath. Cardiovascular: Negative for chest pain. Gastrointestinal: Positive for nausea. Negative for vomiting, abdominal pain, diarrhea and constipation. Genitourinary: Negative for dysuria. Musculoskeletal: Positive for myalgias. Negative for arthralgias. Skin: Negative for rash. Neurological: Positive for headaches. Psychiatric/Behavioral: Negative for confusion. Physical Exam Nursing note and vitals reviewed. Constitutional: She is oriented to person, place, and time. She appears well- developed and well-nourished. No distress. HENT: Head: Normocephalic. Mouth/Throat: Oropharynx is clear and moist. Eyes: Conjunctivae normal and EOM are normal. Pupils are equal, round, and reactive to light. No scleral icterus. Neck: Neck supple. Cardiovascular: Normal rate, regular rhythm and normal heart sounds. Exam reveals no gallop and no friction rub. No murmur heard. Pulmonary/Chest: Effort normal and breath sounds normal. No respiratory distress. She has no wheezes. She has no rales. Abdominal: Soft. There is tenderness (mild in right upper quadrant. Negative Pugh's sign). Musculoskeletal: She exhibits no edema and no tenderness. Lymphadenopathy: She has no cervical adenopathy. Neurological: She is alert and oriented to person, place, and time. No cranial nerve deficit. Skin: Skin is warm. No rash noted. She is diaphoretic. Psychiatric: She has a normal mood and affect. Her behavior is normal. Procedures MDM Number of Diagnoses or Management Options Tick-borne disease: new, needed workup Amount and/or Complexity of Data Reviewed Clinical lab tests: ordered and reviewed Review and summarize past medical records: yes Risk of Complications, Morbidity, and/or Mortality Presenting problems: high Patient Progress Patient progress: stable ED Course: I reviewed her workup from the outside hospital which shows a white count of 2.9, platelet count 143, ESR 23 with normal LFTs and urine which appeared contaminated. Chest x-ray was reportedly negative per the patient. I reviewed her right upper quadrant ultrasound which shows probable fatty liver and a normal gallbladder. Labs here show lower limit of normal white blood cell count and decrease in her platelet count 126K. 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 She was given a prescription for doxycycline for 2 weeks and advised to followup with her PCP. Reasons to return were discussed. Jennifer Roach MD 10/14/12 1738 documented in this encounter Miscellaneous Notes * Discharge Summary - Provider, Scanning - 10/15/2012 8:39 AM EDT * Miscellaneous - Provider, Scanning - 10/14/2012 1:19 PM EDT * ED Triage - Marina Hook RN - 10/14/2012 12:56 PM EDT Pt. Sent down from PCP office for ED eval. And ultrasound for RUQ pain. Pt. Began to feel tired on 10/12 and went to [facility]. 10/13 and they took labs, CXR And pt. Return at 0300 because of fever 103 and she went back to ED and received 2 L fluid and ibuprofen and was referred to her PCP who saw her and referred her here. Pt. Getting chills and fevers continuing. documented in this encounter Plan of Treatment Not on file documented as of this encounter Procedures Procedure Name Priority Date/Time Associated Diagnosis Comments BABESIA MICROTI IGG AND IGM ANTIBODY PANEL Routine 10/14/2012 4:00 PM EDT LYME IGG & IGM ANTIBODY Routine 10/14/2012 4:00 PM EDT BLOOD PARASITES EXAM STAT 10/14/2012 4:00 PM EDT US ABDOMEN LIMITED STAT 10/14/2012 3: 27 PM EDT DIFFERENTIAL, AUTOMATED STAT 10/14/2012 1:35 PM EDT BLUE TUBE HOLD STAT 10/14/2012 1:35 PM EDT CREATININE Routine 10/14/2012 1:35 PM EDT CBC (WITH DIFF) STAT 10/14/2012 1:35 PM EDT BUN STAT 10/14/2012 1:35 PM EDT LIPASE STAT 10/14/2012 1:35 PM EDT GLUCOSE STAT 10/14/2012 1:35 PM EDT HEPATIC FUNCTION PANEL STAT 10/14/2012 1:35 PM EDT ELECTROLYTES PANEL STAT 10/14/2012 1: 35 PM EDT documented in this encounter Results * Lyme IgG & IgM Antibody (10/14/2012 4:00 PM EDT) Pathologist [facility] Lyme Antibody Neg Neg [facility] Blood specimen (specimen) 10/14/2012 4:00 PM EDT 10/15/2012 6:59 AM EDT Narrative Resulting Agency Comment Spec In Lab Jennifer Roach MD IMMUNOLOGY ORDERABLE S [facility] * Babesia Microti IgG and IgM Antibody Panel (10/14/2012 4:00 PM EDT) Babesia Ab Panel Test ? Result ? Flag ??Unit ??RefValue ------ Babesia Microti Antibodies IgG, IgM ??Babesia microti IgG ?<1:64 ??Babesia microti IgM ?<1:20 ??Interpretation ? SEE COMMENTS ANTIBODY NOT DETECTED REFERENCE RANGES: IgG <1:64 ?IgM <1:20 Elevated antibody levels to B. microti indicate exposure to the organism. Human babesiosis infection is transmitted by the bite of an infected Ixodes tick or less frequently from transfusion with blood from an infected donor. Definitive diagnosis is made by identifying intraerythrocytic organisms in peripheral blood. In patients with low parasitemia, antibody detection by IFA is recommended. IgG levels greater than or equal to 1:1024 can be detected in acute phase patients with parasites in blood smears. The IFA assay can be used as a seroepidemiologic tool to study the frequency and distribution of B. microti in endemic areas especially in persons with mixed infections also involving Borrelia burgdorferi. This test was developed and its performance characteristics have been determined by [facility]. It has not been cleared or approved by the U.S. Food and Drug Administration. The FDA has determined that such clearance or approval is not necessary. Performance characteristics refer to the analytical performance of the test. Test Performed by: [facility], [employer]. [address] [place] [phone] JANES STEWART Blood specimen (specimen) 10/14/2012 4:00 PM EDT 10/15/2012 8:37 AM EDT Narrative Resulting Agency Comment Spec In Lab Jennifer Roach MD CHEMISTRY ORDERABLES [facility] * Blood Parasites Exam (10/14/2012 4:00 PM EDT) Blood Parasites Exam ? Patient Name: ZELDA BENSON ?Ordered By: JENNIFER ROACH ? MR#: [id number] ?LOC: ??ED ? /Sex: ??1960 (52 years), ? Female ? PROCEDURE: Blood Parasites Exam ?SOURCE: Blood ? COLLECTED: 10/14/2012 16:00 ? STARTED: 10/14/2012 17:31 ? FINAL REPORT ? Final Report ? Verified:2012 22:05 ? Examination of thick and thin smears reveals no evidence of malaria or ? other bloodborne parasites. ? PRELIMINARY REPORT ? Preliminary Report ? Verified:2012 17:51 ? Examination of thin smear: No blood Parasites seen. ? Examination of thick smear: Results to follow ? JANES CASTROIUM Blood specimen (specimen) 10/14/2012 4:00 PM EDT 10/14/2012 5:31 PM EDT Narrative Resulting Agency Comment Spec In Lab Jennifer Roach MD [facility]OLOGY [facility] * US abdomen limited (10/14/2012 3:27 PM EDT) Anatomical Region Laterality Modality Abdomen Ultrasound 10/14/2012 3:27 PM EDT Narrative 10/14/2012 3:52 PM EDT ?Abdominal ? (Signed Final 10/14/2012 03:46 pm) Patient Info ID: ? [id number] ? : ??[birth year] (52 yrs) Name: ? PHOEBE E NIKKO ?Visit Date: 10/14/2012 03:23 pm Performed By Performed By: ?Michael Ramesh RDMS Attending: ? Anselmo HUANG, Gamal Garcia Referred By: ? JENNIFER ROACH MD Service(s) Provided UABDLIM - Abdominal Limited Survey Single ? [id number] Organ or Quadrant - [id number] Indications fever, chills. RUQ pain ----- Liver ----- Right Lobe Length: ?? 16.7 ?? cm Echogenicity/Echotexture: ?? Fatty liver Gallbladder Cholelithiasis: ?No stones visualized Focal Tenderness: ?Negative sonographic Pugh's sign Biliary Tract Intrahepatic Ducts: ?? Normal Extrahepatic Ducts: ?? Normal Common Duct Size: ? 3 ? mm -------- Pancreas -------- Head: ? Normal Tail: ? Poorly visualized due to overlying bowel Body: ? Normal Right Kidney Size (cm) ?L: ??11.8 Cortical Thickness: ?Normal Cortical Echogenicity: ?? Normal Hydronephrosis: ?No sonographic evidence Comment: ?Non obstructing lower pole stone measuring 5mm --- IVC --- Normal in caliber where visualized. Impression Ultrasound - Abdomen Limited - Summary Mild liver steatosis. 6 mm right renal stone no gallstones or wall thickening I ??viewed the images and agree with the above interpretation. Thank you for allowing us to participate in the care of ZELDA BENSON. Please do not hesitate to call if you have any questions. ? Gamal Briones MD Electronically Signed Final Report ?? 10/14/2012 03:46 pm Procedure Note Gamal Briones MD - 10/14/2012 Abdominal (Signed Final 10/14/2012 03:46 pm) Patient Info ID: [id number] : [birth year] (52 yrs) Name: ZELDA BENSON Visit Date: 10/14/2012 03:23 pm Performed By Performed By: Michael Ramesh RDMS Attending: Gamal Briones MD Referred By: JENNIFER ROACH MD Service(s) Provided UABDLIM - Abdominal Limited Survey Single [id number] Organ or Quadrant - [id number] Indications fever, chills. RUQ pain ----- Liver ----- Right Lobe Length: 16.7 cm Echogenicity/Echotexture: Fatty liver Gallbladder Cholelithiasis: No stones visualized Focal Tenderness: Negative sonographic Pugh's sign Biliary Tract Intrahepatic Ducts: Normal Extrahepatic Ducts: Normal Common Duct Size: 3 mm -------- Pancreas -------- Head: Normal Tail: Poorly visualized due to overlying bowel Body: Normal Right Kidney Size (cm) L: 11.8 Cortical Thickness: Normal Cortical Echogenicity: Normal Hydronephrosis: No sonographic evidence Comment: Non obstructing lower pole stone measuring 5mm --- IVC --- Normal in caliber where visualized. Impression Ultrasound - Abdomen Limited - Summary Mild liver steatosis. 6 mm right renal stone no gallstones or wall thickening I viewed the images and agree with the above interpretation. Thank you for allowing us to participate in the care of ZELDA BENSON. Please do not hesitate to call if you have any questions. Gamal Briones MD Electronically Signed Final Report 10/14/2012 03:46 pm Jennifer Roach MD IMG US GEN ORDERABLE S * (ABNORMAL) Differential, Automated (10/14/2012 1:35 PM EDT) Neutrophil % 81.0(H) 34.0 - 71.0 % CERNER MILLENNIUM Neutrophil Absolute 3.46 1.50 - 6.30 x10(3)/mc L CERNER MILLENNIUM Lymph % 9.4(L) 19.0 - 53.0 % CERNER MILLENNIUM Lymphocytes Abs 0.4(L) 1.0 - 3.6 x10(3)/mc L CERNER MILLENNIUM Monocyte % 8.7 4.0 - 13.0 % CERNER MILLENNIUM Monocyte Abs 0.4 0.2 - 1.0 x10(3)/mc L CERNER MILLENNIUM Eos % 0.2 0.0 - 7.0 % CERNER MILLENNIUM Eosinophils Abs 0.0 0.0 - 0.5 x10(3)/mc L CERNER MILLENNIUM Basophil % 0.5 0.0 - 2.0 % CERNER MILLENNIUM Baso Absolute 0.0 0.0 - 0.2 x10(3)/mc L CERNER MILLENNIUM Immature Gran % 0.20 0.00 - 0.66 % CERNER MILLENNIUM Comment: Immature granulocytes(IG's)percentage and absolute count will include metamyelocytes, myelocytes, and promyelocytes. Blood smears from CBCs yielding IG's will be scanned manually for concordance. If this scan disagrees with the automated IG or if promyelocytes are noted, a manual differential will be performed. Immature Gran Absolute 0.01 0.00 - 0.05 x10(3)/mc L CERNER MILLENNIUM Blood specimen (specimen) 10/14/2012 1:35 PM EDT 10/14/2012 1:54 PM EDT Halley Vazquez MD HEMATOLOGY ORDERABL ES Performing Organization Address [facility] Co de Phone Number JANES HEARDENNIUM * Blue Tube HOLD (10/14/2012 1:35 PM EDT) Blue Hold Sample in lab. CERCHANTELL HEARDENNIUM Blood specimen (specimen) 10/14/2012 1:35 PM EDT 10/14/2012 1:54 PM EDT Halley Vazquez MD HEMATOLOGY ORDERABL ES CERCHANTELL HEARDENNIUM * Lipase (10/14/2012 1:35 PM EDT) Lipase 20 0 - 60 unit/L CERNER MILLENNIUM Blood specimen (specimen) 10/14/2012 1:35 PM EDT 10/14/2012 1:54 PM EDT Narrative Resulting Agency Comment Spec In Lab Halley Vazquez MD CHEMISTRY ORDERABLE S Performing Organization Address [facility] Co de Phone Number CERBANNER MILLENNIUM * (ABNORMAL) Hepatic Function Panel (10/14/2012 1:35 PM EDT) Pathologist [facility] Protein, Total 7.1 6.4 - 8.3 gm/dL CERNER MILLENNIUM Albumin 4.1 3.2 - 5.2 gm/dL CERNER MILLENNIUM Aspartate Aminotransferase 82(H) 0 - 30 unit/L CERNER MILLENNIUM Alanine Aminotransferase 81(H) 0 - 30 unit/L CERNER MILLENNIUM Alkaline Phosphatase 49 40 - 104 unit/L CERNER MILLENNIUM Bilirubin, Total 0.6 0.2 - 1.3 mg/dL CERNER MILLENNIUM Bilirubin, Direct 0.2 0.0 - 0.3 mg/dL CERNER MILLENNIUM Blood specimen (specimen) 10/14/2012 1:35 PM EDT 10/14/2012 1:54 PM EDT Narrative Resulting Agency Comment Spec In Lab Halley Vazquez MD CHEMISTRY ORDERABLE S Performing Organization Address [facility] Co de Phone Number [facility] MILLENNIUM * Glucose, random (10/14/2012 1:35 PM EDT) Pathologist [facility] Glucose 106 60 - 199 mg/dL CERNER MILLENNIUM Comment:Diabetes: >=200 mg/d L plus symptoms Blood specimen (specimen) 10/14/2012 1:35 PM EDT 10/14/2012 1:54 PM EDT Narrative Resulting Agency Comment Spec In Lab Halley Vazquez MD CHEMISTRY ORDERABLE S [facility] MILLENNIUM * Creatinine (10/14/2012 1:35 PM EDT) Creatinine 0.74 0.70 - 1.20 mg/dL CERNER MILLENNIUM Comment: Please note that the pediatric reference intervals supplied above were not validated at [facility]. Results from pediatric patients should be interpreted in conjunction to the patient's age, height and muscle mass. Est Glomerular Filtration Rate >60 >=60 CERNER MILLENNIUM Comment: This estimated GFR (eGFR) value was calculated using the MDRD equation which has been validated on patients between the ages of 18 and 70. The MDRD should not be used to assess kidney function in patients < 18 years of age or in patients with extremes of body mass, or in patients with acute kidney failure. This value should be multiplied by 1.2 for patients. For further information please copy and paste the following links into your internet browser. http://www.nkdep.nih.gov/lab-evaluation.shtml http://www.kidney.org/professionals/ Blood specimen (specimen) 10/14/2012 1:35 PM EDT 10/14/2012 1:54 PM EDT Narrative Resulting Agency Comment Spec In Lab Halley Vazquez MD CHEMISTRY ORDERABLE S Performing Organization Address [facility] Co de Phone Number CERNER MILLENNIUM * BUN (10/14/2012 1:35 PM EDT) Blood Urea Nitrogen 10 8 - 18 mg/dL CERNER MILLENNIUM Blood specimen (specimen) 10/14/2012 1:35 PM EDT 10/14/2012 1:54 PM EDT Narrative Resulting Agency Comment Spec In Lab Halley Vazquez MD CHEMISTRY ORDERABLE S Performing Organization Address [facility] Co de Phone Number CERNER MILLENNIUM * (ABNORMAL) Electrolytes panel (10/14/2012 1:35 PM EDT) Sodium 138 135 - 145 mmol/L CERNER MILLENNIUM Potassium 3.4(L) 3.5 - 5.0 mmol/L CERNER MILLENNIUM Comment: Please note: ??Patients with WBC >100,000 may have falsely elevated Potassium levels. ??For accurate Potassium quantification in these patients send serum separator tube (gold top) for subsequent determinations. ??Contact the Clinical Chemistry Laboratory if there are any questions. Chloride 102 98 - 107 mmol/L CERNER MILLENNIUM Carbon Dioxide 22 22 - 31 mmol/L CERNER MILLENNIUM Anion Gap 14 5 - 15 mmol/L CERNER MILLENNIUM Blood specimen (specimen) 10/14/2012 1:35 PM EDT 10/14/2012 1:54 PM EDT Narrative Resulting Agency Comment Spec In Lab Halley Vazquez MD CHEMISTRY ORDERABLE S Performing Organization Address [facility] Co de Phone Number JANES CASTROIUM * (ABNORMAL) CBC (with Diff) (10/14/2012 1:35 PM EDT) White Blood Cell 4.3 4.0 - 10.0 x10(3)/mc L CERNER MILLENNIUM Red Blood Cell 4.52 3.93 - 5.22 x10(6)/mc L CERNER MILLENNIUM Hemoglobin 13.7 11.2 - 15.7 gm/dL CERNER MILLENNIUM Hematocrit 41.1 34.0 - 45.0 % CERNER MILLENNIUM Mean Cell Volume 90.9 79.0 - 94.0 fL CERNER MILLENNIUM Mean Cell Hemoglobin 30.3 26.6 - 32.2 pg CERNER MILLENNIUM Mean Cell Hemoglobin Concentration 33.3 32.0 - 36.5 gm/dL CERNER MILLENNIUM Platelet 126(L) 145 - 370 x10(3)/mc L CERNER MILLENNIUM RDW Standard Deviation 41.5 35.0 - 46.0 fL CERNER MILLENNIUM RDW coefficient of variation 12.4 10.9 - 14.4 % CERNER MILLENNIUM Mean Platelet Volume 10.9 9.0 - 12.0 fL CERNER MILLENNIUM Blood specimen (specimen) 10/14/2012 1:35 PM EDT 10/14/2012 1:54 PM EDT Narrative Resulting Agency Comment Spec In Lab Halley Vazquez MD HEMATOLOGY ORDERABL ES Performing Organization Address [facility] Co de Phone Number JANES STEWART documented in this encounter Visit Diagnoses Diagnosis Tick-borne disease- Primary Other specified arthropod-borne diseases documented in this encounter Administered Medications Inactive Administered Medications - up to 3 most recent administrations Medication Order MAR Action Action Date Dose Rate Site doxycycline (VIBRA-TABS) tablet 100 mg 100 mg, Oral, ONCE, 1 dose, On Sat10/14/12 at 1800, STAT, Indication for (Active or Suspected): Other (See Comment) / erlichiosis Given 10/14/2012 5:51 PM EDT 100 mg ketorolac (TORADOL) injection 30 mg 30 mg, Intravenous, ONCE, 1 dose, On Sat10/14/12 at 1630, Routine Given 10/14/2012 4:18 PM EDT 30 mg documented in this encounter Active and Recently Administered Medications Times are shown in EDT. Scheduled Medication Order 10/12/2012 10/13/2012 10/14/2012 doxycycline (VIBRA-TABS) tablet 100 mg (COMPLETED) 100 mg, Oral, ONCE, 1 dose, On Sat10/14/12 at 1800, STAT, Indication for (Active or Suspected): Other (See Comment) / erlichiosis 1751 (Given - Provid er: Candelario Rodriguez RN) ketorolac (TORADOL) injection 30 mg (COMPLETED) 30 mg, Intravenous, ONCE, 1 dose, On Sat10/14/12 at 1630, Routine 1618 (Given - Provid er: Candelario Rodriguez RN) documented in this encounter Care Teams Eyelet Row Marker Relationship Specialty Start Date End Date [place] [address] PCP - General 01/11/12 12/24/17 documented as of this encounter
--- OUTSIDE RECORDS SUMMARY | 2024-03-06 00:29 | XMS_ITS | Encounter Summary ---
Author Organization [facility] [place] [address] Care Team Providers Care Tool And Die Machinist Name Role Phone Marlys Roth DO Primary Care Provider +1- [phone] Encounter Details Date Type Department Care Team (Latest Contact Info) Description 09/29/2022 Travel Social History Tobacco Use Types Packs/Day Years Used Date Smoking Tobacco: Never Assessed Sex and Gender Information Value Date Recorded Sex Assigned at Not on file Gender Identity Not on file Sexual Orientation Not on file documented as of this encounter Plan of Treatment Not on file documented as of this encounter Visit Diagnoses Not on filedocumented in this encounter Care Teams Tool And Die Machinist Relationship Specialty Start Date End Date Marlys Roth DO [address] [place] [address] PCP - General Family Medicine 12/25/17 documented as of this encounter
--- NOTE | 2024-03-06 14:22 | DI.RAD_ITS ---
Exam(s) XR FOOT LT COMPLETE EXAM: XR FOOT LT COMPLETE CLINICAL HISTORY: left foot painM79.672 G62.9 POLYNEUROPATHY. TECHNIQUE: 2D digital imaging was performed. COMPARISON: CR XR FOOT RT COMPLETE from 03/06/2024 FINDINGS: 3 views No evidence of acute fracture or diastasis of the Lisfranc joint. There are advanced degenerative ch anges in the great toe metatarsophalangeal joint, comprise of joint space narrowing (more so laterall y than medially in this articulation) and dorsal osteophyte. Also calcification in the dorsal aspect of the foot noted in this region off the dorsal lateral aspect of the great toe metatarsophalangeal joint. The other MTP joints appear unremarkable as do the tarsometatarsal joints. No pes planus. M oderate size inferior calcaneal spur noted. Tiny in these 0 fight on the posterior calcaneus. On th e lateral view there are 2 adjacent calcific densities seen off the dorsal aspect the fibula measurin g 5 x 4 mm and 2 x 3 mm. 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 Other findings as above. DATA REPOSITORY: RADIATION DOSE DELIVERED:
--- NOTE | 2024-03-06 14:22 | DI.RAD_ITS ---
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 TECHNIQUE: 2D digital imaging was performed. COMPARISON: CR XR FOOT LT COMPLETE from 03/06/2024 FINDINGS: 3 views No evidence of acute fracture or diastasis of the Lisfranc joint. There is some degenerative change in the great toe metatarsophalangeal joint, but less than is evident in this articulation of the oppo site-left foot. On the lateral view there is an oval calcific density seen over the dorsal foot which may be a phlebo lith given its appearance. There is a dorsal bony excrescence off of the dorsal aspect of what is pr obably the medial cuneiform. There is a moderate size inferior calcaneal spur, similar to the opposi te side. There is no calcification in the plantar fascia and no posterior enthesophyte at the calcan eus level. No ominous osseous lesions. No erosions. 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 Other findings as above. DATA REPOSITORY: RADIATION DOSE DELIVERED:
== END 2024-03-06 00:46 ==
LOC: DI 00:26
PROVIDERS: PCP Student in an Organized Health Care Education/Training Program; Visit Provider Podiatrist
DX: R09.81 Nasal congestion (principal); M79.672 Pain in left foot; M19.071 Primary osteoarthritis, right ankle and foot
CPT/HCPCS: 73630

== ENCOUNTER 2024-03-06 00:27 | Outpatient (CLI) | payer MEDICAID, SELFPAY ==
--- NOTE | 2024-03-06 14:22 | DI.RAD_ITS ---
Exam(s) XR SINUS COMPLETE 3+V EXAM: XR SINUS COMPLETE 3+V CLINICAL HISTORY: evaluate sinuses; Hx dev septum; Hx multiple illne R09.81 NASEL CONGESTION. TECHNIQUE: 2D digital imaging was performed. COMPARISON: No exams were available for comparison FINDINGS: The paranasal sinuses are clear. No evidence of air-fluid level. No obvious focal mucosal thickening evident. Nasal septum is relatively midline. Mastoid air cells also appear clear. There are no inc idental osseous lesions in the skull. IMPRESSION: Unremarkable radiographs of the sinuses. DATA REPOSITORY: RADIATION DOSE DELIVERED:
== END 2024-03-06 00:47 ==
LOC: DI 00:27
PROVIDERS: PCP Student in an Organized Health Care Education/Training Program; Visit Provider Student in an Organized Health Care Education/Training Program
DX: R09.81 Nasal congestion (principal)
CPT/HCPCS: 70220

== ENCOUNTER 2024-06-22 01:57 | Outpatient (CLI) | payer MEDICAID, SELFPAY ==
[2024-06-22 10:03] LABS: HGB 13.6 g/dL (11.2-15.7)
[2024-06-22 12:10] LABS: ALT 50 U/L (14-59); AST 27 U/L (15-37); Alkaline Phosphatase 50 U/L (46-116); Anion Gap 4.2 mmol/L (3-11); BUN 13 mg/dL (7-18); Bilirubin, Total 0.7 mg/dL (0.2-1.0); CO2 35.8 mmol/L (21.0-32.0); CREATININE 0.8 mg/dL (0.55-1.02); Calcium 9.4 mg/dL (8.5-10.1); Chloride 103 mmol/L (98-107); Estimated GFR 82.23 (mL/min/1.73m2); Glucose 98 mg/dL (74-106); Magnesium 2.2 mg/dL (1.8-2.4); Potassium 3.9 mmol/L (3.5-5.1); Sodium 143 mmol/L (136-145); TSH (W/Ref FT4) 1.64 uIU/mL (0.36-3.74); Vitamin D 25 Total 21 ng/mL (30-100)
== END 2024-06-22 01:58 | disposition home or self-care (01) ==
PROVIDERS: PCP Nurse Practitioner Family; Referring Provider Student in an Organized Health Care Education/Training Program; Visit Provider Student in an Organized Health Care Education/Training Program
DX: I10 Essential (primary) hypertension (principal); Z91.89 Other specified personal risk factors, not elsewhere classified; K90.9 Intestinal malabsorption, unspecified
CPT/HCPCS: 36415; 80053; 82306; 83735; 84443; 85018

== ENCOUNTER 2024-07-21 14:04 | Outpatient (REF) | payer MEDICAID, SELFPAY ==
[2024-07-21 15:22] LABS: HCT 38.7 % (36.0-46.0); MCH 30.1 pg (27.0-33.0); MCHC 33.6 % (32.0-36.0); MCV 90 fL (80-95); MPV 10.9 fL (8.0-11.0); Platelet Count 251 10^3/uL (130-400); RBC 4.32 10^6/uL (3.93-5.22); RDW 11.7 % (11.7-14.6); RDW-SD 38.2 fL; WBC 4.62 10^3/uL (4.4-10.8)
[2024-07-21 15:57] LABS: Iron 65 ug/dL (50-170); Total Iron Binding Capacity 290 ug/dL (250-450); Transferrin Sat 22 % (15-50)
[2024-07-21 17:14] LABS: Ferritin 273 ng/mL (8-252)
[2024-07-22 11:03] LABS: Hepatitis C Ab w Rflx HCV PCR Negative (Negative)
== END 2024-07-21 14:05 | disposition home or self-care (01) ==
LOC: LBN 14:04
PROVIDERS: PCP Nurse Practitioner Family; Visit Provider Nurse Practitioner Family
DX: K76.0 Fatty (change of) liver, not elsewhere classified (principal); Z00.00 Encounter for general adult medical examination without abnormal findings
CPT/HCPCS: 85027; 86803; 82728; 83540; 83550